=== PATIENT | male | born 1960 | race Hispanic/Latino ===

== ENCOUNTER → 2019-09-01 | Outpatient (CLI) | payer OTHER ==
--- NOTE | 2019-09-01 12:47 | REP ---
Five views lumbar spine: 09/01/2019. Indication: Low back pain. Comparison: None. Findings: There is no evidence of acute fracture, subluxation or dislocation. Vertebral body alignment is within anatomical limits. No erosive osseous lesions are detected. Disc space height is relatively maintained throughout. Impression: No acute osseous lumbar spine injury detected. Electronically Signed by Santosh Keane DO 09/01/2019 12:39 P
== END ==
LOC: M RAD 08:53
PROVIDERS: ATTEND Surgery
DX: M54.5 Low back pain (principal)